=== PATIENT | female | born 1990 ===

== ENCOUNTER 2018-10-03 17:53 | Emergency (ER) | payer OTHER ==
[2018-10-03 18:49] VITALS: BP 120/76; PULSE 67; RESP 16; TEMP 97.6; O2SAT 97
--- NOTE | 2018-10-03 21:00 | ED PDOC ---
HPI: Abdomen Time Seen by Provider: 10/03/18 20:29 Chief Complaint (Nursing): Abdominal Pain Chief Complaint (Provider): abdominal pain History Per: Patient History/Exam Limitations: no limitations Onset/Duration Of Symptoms: Days (3 weeks), Waxing/Waning Current Symptoms Are (Timing): Still Present Location Of Pain/Discomfort: Epigastric, Suprapubic Quality Of Discomfort: Cramping Associated Symptoms: Nausea, Vomiting Additional Complaint(s): 28 y/o female presents for evaluation of intermittent abdominal cramping x 3 weeks, worse x 3 days. Associated intermittent nausea, vomiting. Denies fever, cough, congestion, chest pain, shortness of breath, palpitations, changes in bowel movements, urinary symptoms, vaginal discharge. Patient states her menstrual periods are irregular, notes some light spotting a few days ago Past Medical History Reviewed: Historical Data, Nursing Documentation, Vital Signs Vital Signs: Last Vital Signs Temp 97.6 F 10/03/18 18:46 Pulse 67 10/03/18 18:46 Resp 16 10/03/18 18:46 BP 120/76 10/03/18 18:46 Pulse Ox 97 10/03/18 18:46 - Medical History PMH: Anxiety - Surgical History Surgical History: No Surg Hx - Family History Family History: States: No Known Family Hx - Home Medications Home Medications: Ambulatory Orders Medication Instructions Recorded Cyclobenzaprine HCl [Flexeril] 10 mg PO Q8 #15 tab 04/12/14 Ibuprofen [Motrin] 600 mg PO Q8 PRN #20 tab 04/12/14 - Allergies Allergies/Adverse Reactions: Allergies Allergy/AdvReac Type Severity Reaction Status Date / Time No Known Allergies Allergy Verified 04/12/14 03:45 Review of Systems ROS Statement: Except As Marked, All Systems Reviewed And Found Negative Gastrointestinal: Positive for: Abdominal Pain Genitourinary Female: Positive for: Pelvic Pain Physical Exam - Reviewed Nursing Documentation Reviewed: Yes Vital Signs Reviewed: Yes - Physical Exam Appears: Positive for: Well, Non-toxic, No Acute Distress Head Exam: Positive for: ATRAUMATIC, NORMAL INSPECTION, NORMOCEPHALIC Skin: Positive for: Normal Color Eye Exam: Positive for: Normal appearance ENT: Positive for: Normal ENT Inspection Cardiovascular/Chest: Positive for: Regular Rate, Rhythm Respiratory: Positive for: Normal Breath Sounds Gastrointestinal/Abdominal: Positive for: Bowel Sounds, Soft, Tenderness (epigastric, suprapubic) Back: Positive for: Normal Inspection Extremity: Positive for: Normal ROM Neurological/Psych: Positive for: Awake, Alert, Oriented (x3) - Laboratory Results Result Diagrams: 10/03/18 21:25 10/03/18 23:13 - ECG O2 Sat by Pulse Oximetry: 97 - Progress ED Course And Treament: upreg positive -cbc -cmp -beta hcg -type and screen -ob tv u/s -PO tylenol -IV pepcid EXAM: US Obstetrical, Complete <14 weeks CLINICAL HISTORY: Pain TECHNIQUE: Transvaginal and transabdominal imaging of the maternal pelvis and a <14 week gestation with image documentation. COMPARISON: None provided. FINDINGS: GESTATION: An early single living IUP is identified estimated to be 6 weeks and 0 days in age, +/- 3 days. cardiac activity documented being at a rate of 138 BPM. UTERUS: Unremarkable. No myometrial mass. CERVIX: Closed. Unremarkable. OVARIES: A 1.7 x 1.6 x 1.8 cm corpus luteum cyst identified in the right ovary. Otherwise, unremarkable. No suspicious mass. FREE FLUID: No free fluid. IMPRESSION: Single early living intrauterine . No acute abnormality Patient resting comfortably on re-eval; tolerating PO. Patient educated on findings, discharged with instructions to follow up movers within 2-3 days Advised to take vitamins. BLand diet. Return precautions given Disposition - Clinical Impression Clinical Impression: Abdominal pain in - Patient ED Disposition Is Patient to be Admitted: No Counseled Patient/Family Regarding: Studies Performed, Diagnosis, Need For Followup, Rx Given - Disposition [facility] Disposition: Routine/Home Disposition Time: 00:21 Condition: IMPROVED Instructions: Stomach Pain in Early
[2018-10-03] MEDS ORDERED: Sodium Chloride 0.9% 1,000 ML IV STA (21:14)
[2018-10-03 21:56] LABS: BASO % 0.5 % (0.0-2.0); EOS # 0.3 K/uL (0.0-0.7); EOS % 3.8 % (0.0-4.0); LYMPH # 1.6 K/uL (1.0-4.3); LYMPH % 17.6 % (20.0-40.0); MEAN CELL VOLUME 83.6 fl (81.0-99.0); MEAN CORPUSCULAR HEMOGLOBIN 27.9 pg (27.0-31.0); MEAN CORPUSCULAR HGB CONC 33.4 g/dL (33.0-37.0); MEAN PLATELET VOLUME 8.8 fl (7.2-11.7); MONO # 0.6 K/uL (0.0-0.8); MONO % 6.6 % (0.0-10.0); NEUT # 6.4 K/uL (1.8-7.0); NEUT % 71.5 % (50.0-75.0); RBC 4.66 Mil/uL (3.80-5.20); RED CELL DISTRIBUTION WIDTH 13.7 % (11.5-14.5)
[2018-10-03 23:42] LABS: ALB/GLOB RATIO 1.2 (1.0-2.1); ALBUMIN 3.9 g/dL (3.5-5.0); ALT/SGPT 35 U/L (9-52); AST/SGOT 23 U/L (14-36); BLOOD UREA NITROGEN 11 mg/dl (7-17); CALCIUM 8.9 mg/dL (8.4-10.2); GFR NON-AFRICAN AMERICAN > 60
--- NOTE | 2018-10-04 14:33 | US ---
Date of service: 10/03/2018 PROCEDURE: OB Pelvic Ultrasound HISTORY: , pain LMP not provided COMPARISON: None available. FINDINGS: UTERUS: Gestational sac: 16 mm equivalent to 5 weeks 6 days [place]-rump length 4 mm equivalent to 6 weeks 1 day Heart rate: 136 bpm. age (Ultrasound estimated): 6 weeks 0 days [place]-gestational hemorrhage: None. Date of delivery (Ultrasound estimated) : 05/29/2019 3 mm yolk sac visualized Uterus measures 8.0 x 4.0 x 5.5 cm. Normal in size and appearance. CERVIX: Measures 4.4 cm. Long and closed. No cervical abnormality seen. RIGHT OVARY: Measures 1.8 x 2.6 x 2.6 cm. No mass lesion. Normal flow. Corpus luteum noted, 1.6 x 1.7 x 1.8 cm, with characteristic peripheral hypervascularity. LEFT OVARY: Measures 1.3 x 2.4 x 3.2 cm. No solid mass. Normal flow. FREE FLUID: None. OTHER FINDINGS: None. IMPRESSION: Single live intrauterine gestation of approximately 6 weeks 0 days. No subchorionic hemorrhage. heart rate 136. LETICIA 05/29/2019. The preliminary findings for this examination were reported by [facility] at 11:43 p.m. on 10/03/2018. There is concurrence of this report with the preliminary findings.
== END 2018-10-04 00:45 | disposition home or self-care (01) ==
LOC: H.ER 17:53
DX: O26.891 Other specified pregnancy related conditions, first trimester (principal); Z3A.01 Less than 8 weeks gestation of pregnancy
CPT/HCPCS: 76817; 80053; 81025; 84702; 85025; 86850; 86900; 96361; 96374; 99283; J7030

== ENCOUNTER 2018-11-05 14:22 | Emergency (ER) | payer OTHER ==
[2018-11-05 14:54] VITALS: RESP 16; O2SAT 98
[2018-11-05 15:49] LABS: BASO # 0.1 K/uL (0.0-0.2); BASO % 0.8 % (0.0-2.0); EOS # 0.3 K/uL (0.0-0.7); EOS % 3.3 % (0.0-4.0); HEMOGLOBIN 12.5 g/dL (12.0-16.0); LYMPH # 1.5 K/uL (1.0-4.3); LYMPH % 16.7 % (20.0-40.0); MEAN CELL VOLUME 85.3 fl (81.0-99.0); MEAN CORPUSCULAR HEMOGLOBIN 27.6 pg (27.0-31.0); MEAN CORPUSCULAR HGB CONC 32.4 g/dL (33.0-37.0); MEAN PLATELET VOLUME 8.8 fl (7.2-11.7); MONO # 0.6 K/uL (0.0-0.8); MONO % 6.8 % (0.0-10.0); NEUT # 6.6 K/uL (1.8-7.0); NEUT % 72.4 % (50.0-75.0); NRBC % 0.1 % (0.0-0.0); RBC 4.51 Mil/uL (3.80-5.20); RED CELL DISTRIBUTION WIDTH 12.4 % (11.5-14.5); WHITE BLOOD COUNT 9.2 K/uL (4.8-10.8)
[2018-11-05 16:00] LABS: ALB/GLOB RATIO 1.3 (1.0-2.1); ALBUMIN 4.4 g/dL (3.5-5.0); ALT/SGPT 31 U/L (9-52); AST/SGOT 27 U/L (14-36); BLOOD UREA NITROGEN 7 mg/dl (7-17); CALCIUM 9.5 mg/dL (8.4-10.2); GFR NON-AFRICAN AMERICAN > 60
[2018-11-05] MEDS ORDERED: Sodium Chloride 0.9% 1,000 ML IV STA (16:10)
--- NOTE | 2018-11-05 16:12 | ED PDOC ---
HPI: Abdomen Time Seen by Provider: 11/05/18 15:56 Chief Complaint (Nursing): Abdominal Pain Chief Complaint (Provider): ABDOMINAL PAIN History Per: Patient (28 Y/O FEMALE approx 12 week gestation has had crampy lower abdominal pain. Denies any vaginal bleeding/dysu radha/hematuria/fevers/chills. Has had US confirming .) Past Medical History Reviewed: Historical Data, Nursing Documentation, Vital Signs Vital Signs: Last Vital Signs Temp 98.1 F 11/05/18 14:50 Pulse 78 11/05/18 14:50 Resp 16 11/05/18 14:50 BP 101/56 L 11/05/18 14:50 Pulse Ox 98 11/05/18 14:50 Primary Care Provider: FAMILY PROVIDER,NO - Medical History PMH: Anxiety - Family History Family History: States: No Known Family Hx - Home Medications Home Medications: Ambulatory Orders Medication Instructions Recorded Cyclobenzaprine HCl [Flexeril] 10 mg PO Q8 #15 tab 04/12/14 Ibuprofen [Motrin] 600 mg PO Q8 PRN #20 tab 04/12/14 Acetaminophen [Acetaminophen Extra 2 tab PO Q6 PRN #24 tablet 11/05/18 Strength] - Allergies Allergies/Adverse Reactions: Allergies Allergy/AdvReac Type Severity Reaction Status Date / Time No Known Allergies Allergy Verified 11/05/18 14:50 Review of Systems ROS Statement: Except As Marked, All Systems Reviewed And Found Negative Physical Exam - Reviewed Nursing Documentation Reviewed: Yes Vital Signs Reviewed: Yes - Physical Exam Appears: Positive for: Well, Non-toxic, No Acute Distress Head Exam: Positive for: ATRAUMATIC, NORMAL INSPECTION, NORMOCEPHALIC Skin: Positive for: Normal Color, Warm, DRY Eye Exam: Positive for: EOMI, Normal appearance, PERRL ENT: Positive for: Normal ENT Inspection Neck: Positive for: Normal, Painless ROM Cardiovascular/Chest: Positive for: Regular Rate, Rhythm Respiratory: Positive for: CNT, Normal Breath Sounds Gastrointestinal/Abdominal: Positive for: Normal Exam, Soft Pelvic Exam: Positive for: Discharge (vaginal discharge yellowish noted.), Tender Uterus. Negative for: Active Bleeding, Tender Adnexa Back: Positive for: Normal Inspection Extremity: Positive for: Normal ROM Neurological/Psych: Positive for: Awake, Alert, Normal Tone - Laboratory Results Result Diagrams: 11/05/18 15:30 11/05/18 15:30 Lab Results: Total Bilirubin 0.4 mg/dl (0.2-1.3) 11/05/18 15:30 AST 27 U/L (14-36) 11/05/18 15:30 ALT 31 U/L (9-52) 11/05/18 15:30 Alkaline Phosphatase 48 U/L (38-126) 11/05/18 15:30 Total Protein 7.8 G/DL (6.3-8.2) 11/05/18 15:30 Albumin 4.4 g/dL (3.5-5.0) 11/05/18 15:30 Globulin 3.4 gm/dL (2.2-3.9) 11/05/18 15:30 Albumin/Globulin Ratio 1.3 (1.0-2.1) 11/05/18 15:30 Urine dip results: Negative for: Leukocyte Esterase, Blood, Nitrate, Ketones, Glucose, Bilirubin, Protein - ECG O2 Sat by Pulse Oximetry: 98 - Progress ED Course And Treament: ADNEXA: Right: 2.1 x 1.9 x 3.0 cm. Redemonstration corpus luteum cyst 1.5 x 1.6 x 1.6 cm. Normal Doppler arterial waveform documented. Left: 0.4 x 1.4 x 2.7 cm. Normal Doppler arterial waveform documented Fluid in the cul-de-sac: None IMPRESSION: 10 weeks 4 days live intrauterine gestation. Adequate interval progression compared to the prior study. Disposition - Clinical Impression Clinical Impression: Abdominal pain in - Patient ED Disposition Is Patient to be Admitted: No - Disposition Disposition: Routine/Home Disposition Time: 19:13 Condition: FAIR Prescriptions: Acetaminophen [Acetaminophen Extra Strength] 2 tab PO Q6 PRN #24 tablet PRN Reason: Pain, Moderate (4-7) Instructions: Threatened Miscarriage (DC), Round Ligament Pain Forms: [facility] ED School/Work Excuse
--- NOTE | 2018-11-05 18:45 | US ---
Date of service: 11/05/2018 PROCEDURE: ultrasound HISTORY: ABDOMINAL PAIN COMPARISON: 10/03/2018. TECHNIQUE: Standard protocol for this study/examination. FINDINGS: LMP: Not provided Prior examinations from the current : 10/03/2018. TECHNIQUE: Real-time 2D imaging, duplex and color Doppler. FINDINGS: Cardiac activity: Present Rate: 175 BPM Measurements: Tangent rump length: 4.18 cm Gestational age based on CRL 11 weeks 1 day Gestational age 10 weeks based on gestational sac measurement 4.47 cm Gestational age derived from LMP: Cannot be ascertained based in the absence of a reliable/ known LMP LETICIA based on LMP: Cannot be ascertained based in the absence of a reliable/ known LMP LETICIA based on biometry: 10 weeks 4 days Gestational concordance cannot be determined. Yolk sac identified Cervix: No Cervical abnormalities: Negative examination for cervical dilatation or effacement. Closed cervix measuring 4.53 cm Subchorionic hemorrhage: None UTERUS: 7.2 x 8.5 x 9.0 cm. ADNEXA: Right: 2.1 x 1.9 x 3.0 cm. Redemonstration corpus luteum cyst 1.5 x 1.6 x 1.6 cm. Normal Doppler arterial waveform documented. Left: 0.4 x 1.4 x 2.7 cm. Normal Doppler arterial waveform documented Fluid in the cul-de-sac: None IMPRESSION: 10 weeks 4 days live intrauterine gestation. Adequate interval progression compared to the prior study.
[2018-11-05 19:28] VITALS: BP 101/52; PULSE 76; TEMP 98.3
== END 2018-11-05 19:25 | disposition home or self-care (01) ==
LOC: H.ER 14:22
DX: O26.91 Pregnancy related conditions, unspecified, first trimester (principal); Z3A.10 10 weeks gestation of pregnancy
CPT/HCPCS: 76817; 80053; 84702; 85025; 86850; 86900; 87491; 87591; 99283; J7030